=== PATIENT | male | born 1995 | race Caucasian/White ===

== ENCOUNTER 2018-10-30 19:50 | Emergency (ER) | payer OTHER ==
[~2018-10-30] VITALS: Ht 180.3 cm; Wt 74.1 kg
[2018-10-30 20:02] VITALS: BP 135/67; TEMP 97.6
[2018-10-30] MEDS ORDERED: NORCO 325 MG-51 TAB PO (21:37)
[2018-10-30 22:00] VITALS: PULSE 68
== END 2018-10-30 22:00 | disposition home or self-care (01) ==
LOC: COL.ER 19:50
DX: S62.316A Displaced fracture of base of fifth metacarpal bone, right hand, initial encounter for closed fracture (principal); W22.8XXA Striking against or struck by other objects, initial encounter; Y92.009 Unspecified place in unspecified non-institutional (private) residence as the place of occurrence of the external cause
CPT/HCPCS: Q4021